=== PATIENT | male | born 1940 | race Caucasian/White ===

== ENCOUNTER → 2017-04-01 | Outpatient (CLI) | payer OTHER, MEDICARE | LOC: BHFA 14:00 | PROVIDERS: ATTEND Internal Medicine Cardiovascular Disease | DX: I25.10 Atherosclerotic heart disease of native coronary artery without angina pectoris (principal); Z95.0 Presence of cardiac pacemaker | CPT/HCPCS: 78452; 93017; A9500; J2785 ==

== ENCOUNTER → 2018-02-04 | Outpatient (CLI) | payer MEDICARE, OTHER | LOC: FIMAGING 15:16 | PROVIDERS: ATTEND Physician Assistant | DX: I80.8 Phlebitis and thrombophlebitis of other sites (principal) ==

== ENCOUNTER → 2018-02-24 | Outpatient (CLI) | payer OTHER | LOC: BHLMT 11:30 | PROVIDERS: ATTEND Internal Medicine Cardiovascular Disease | DX: I48.91 Unspecified atrial fibrillation (principal); I25.10 Atherosclerotic heart disease of native coronary artery without angina pectoris | CPT/HCPCS: 93306-PO ==